=== PATIENT | female | born 1930 | race Caucasian/White ===

== ENCOUNTER 2017-12-21 09:32 | Outpatient (CLI) | payer MEDICARE, OTHER ==
--- NOTE | 2017-12-21 11:16 | ULT ---
LEFT LOWER EXTREMITY VENOUS DUPLEX EXAM: Date: 12/21/17 HISTORY: Leg pain and swelling. Contusion to lower leg. FINDINGS: Some of these films were inadvertently labeled wrong. This is a LEFT leg exam, even though some of th e labeling shows right. Real-time color Doppler of left lower extremity was performed from groin to calf. This includes evalu ation of the common femoral, superficial and profunda femoral, saphenous, popliteal, and posterior ti bial vein. This shows patent deep venous system. There is normal compressibility and augmentation. Th ere is no evidence of deep venous thrombosis. IMPRESSION: No evidence of deep venous thrombosis of the left lower extremity. POS: [facility]
== END 2017-12-21 09:33 | disposition home or self-care (01) ==
LOC: ULT 09:32
PROVIDERS: ATTEND Family Medicine
DX: S80.12XA Contusion of left lower leg, initial encounter (principal); M79.605 Pain in left leg

== ENCOUNTER 2018-07-31 15:58 | Emergency (ER) | payer MEDICARE, OTHER ==
--- NOTE | 2018-07-31 16:50 | ULT ---
US Venous Doppler Lt Unilat HISTORY: Left lower extremity pain and edema. FINDINGS: Real-time color Doppler evaluation of the left lower extremity was performed from the groin to calf. This includes evaluation of the common femoral, superficial and profunda femoral, saphenous, popliteal and posterior tibial veins. This reveals a patent deep venous system. There is normal compressibility and augmentation. There is no evidence of DVT. IMPRESSION: No evidence of DVT of the left lower extremity.
== END 2018-07-31 17:20 | disposition home or self-care (01) ==
LOC: ERS 15:58
DX: M79.89 Other specified soft tissue disorders (principal); M10.9 Gout, unspecified; E78.5 Hyperlipidemia, unspecified; I10 Essential (primary) hypertension; I25.2 Old myocardial infarction; J44.9 Chronic obstructive pulmonary disease, unspecified; Z79.899 Other long term (current) drug therapy; Z79.82 Long term (current) use of aspirin; Z79.51 Long term (current) use of inhaled steroids

== ENCOUNTER 2019-05-27 15:50 | Observation (INO) | payer MEDICARE, OTHER ==
[2019-05-27] MEDS ORDERED: Nitroglycerin 0.4 MG TAB (25 Tab Bottle) PO PRN (16:35)
[2019-05-27] MEDS ORDERED: Aspirin 325 mg Enteric Coated Tablet PO SCH (17:00)
[2019-05-27 17:09] LABS: Troponin I Less than 0.010 ng/mL (< 0.028)
[2019-05-27 19:01] VITALS: BMI 30.7
--- NOTE | 2019-05-27 19:05 | HP ---
PRIMARY CARE PROVIDER: Dr. Judy Chaparro. CHIEF COMPLAINT: Chest pain. HISTORY OF PRESENT ILLNESS: Ms. Hammonds is a pleasant 88-year-old lady, who was seen at [facility] on May 27, 2019. She is followed by merchandise pickup/receiving associate, Dr. Ragland. Her auto porter is Dr. Chavez. The patient reports that she started having left-sided chest pain since noon today. She describes it as a pressure-like sensation, nonradiating, 6/10 at its worst, not accompanied by nausea, shortness of breath or lightheadedness. She reports that her last stress test was greater than 2 years ago. She cannot recall any aggravating factors for the chest pain, but the pain resolved after she received nitrates in the emergency room at [place]. She reports that it lasted a little over 2 hours. She did not have any recurrence of the pain. REVIEW OF SYSTEMS: All systems were reviewed and found to be negative except for the pertinent positives mentioned above. PAST MEDICAL HISTORY: Gout, dyslipidemia, hypertension, coronary artery disease, chronic obstructive pulmonary disease, chronic kidney disease stage 3. PAST SURGICAL HISTORY: Coronary artery bypass graft surgery. SOCIAL HISTORY: The patient denies tobacco use, alcohol use, or recreational drug use. CODE STATUS: I discussed her code status. She is full code. FAMILY HISTORY: Significant for multiple members with coronary artery disease. ALLERGIES: SULFA. CURRENT MEDICATIONS: Aspirin 325 mg daily, Crestor 10 mg daily, atenolol 50 mg daily, and losartan 25 mg daily. PHYSICAL EXAMINATION: GENERAL: On examination, Ms. Hammonds is awake and alert, not in acute distress. VITAL SIGNS: Blood pressure is 129/89, pulse 66, respiratory rate 18, and oxygen saturation 100% on room air. She is afebrile. EYES: No scleral icterus, no conjunctival pallor. ENT: Moist mucosal membranes. No oropharyngeal erythema or exudates. NECK: Supple, nontender, trachea is midline. RESPIRATORY: Accessory muscles of breathing are not active. Chest wall movements are symmetric bilaterally. Lungs are clear to auscultation without wheeze, rhonchi, or crepitations. CARDIOVASCULAR: S1 and S2 are heard, regular. Peripheral pulses palpable. ABDOMEN: Soft, nontender, bowel sounds are heard. NEUROLOGIC: Cranial nerves 2 through 12 are intact. MUSCULOSKELETAL: Power is 5/5 in all 4 extremities. SKIN: No rashes. LYMPHATIC: No cervical lymphadenopathy. PSYCHIATRIC: Normal mood, normal affect, patient is oriented to person, place, and time. LABORATORY DATA: Ms. Hammonds's labs and investigations were reviewed. I reviewed her electrocardiogram, which shows normal sinus rhythm with occasional premature ventricular complexes, no ST changes to suggest an acute coronary syndrome. I also reviewed her chest x-ray, which does not show any pulmonary infiltrates. She has an unremarkable CBC, normal electrolytes, elevated blood urea nitrogen of 23, elevated creatinine of 1.37, creatinine was 1.44 on March 29, 2019, and unremarkable LFTs. ASSESSMENT AND PLAN: 1. Chest pain: Ms. Hammonds is presenting with chest pain. Given her significant cardiac history, she will be admitted to the hospital for further management. She will be monitored on telemetry. I will obtain stress test. Further management depending on outcome of the test. 2. Chronic kidney disease stage 3: Stable. 3. Dyslipidemia: Continue statin. 4. Hypertension: Resume home medications, monitor vital signs and titrate antihypertensives as needed. LEVEL OF RISK: High. LEVEL OF COMPLEXITY: High. Many thanks for allowing me to participate in your patient's care. Please feel free to contact me with any questions or concerns. Job ID: [id number]
[2019-05-27] MEDS: Rosuvastatin 10 MG TAB PO SCH (19:30)
[2019-05-27 20:10] LABS: Troponin I Less than 0.010 ng/mL (< 0.028)
[2019-05-28] MEDS: Atenolol 50 MG TAB PO SCH (07:59)
[2019-05-28] MEDS: Enoxaparin Sodium 40 MG/0.4 ML SYRINGE SC SCH (08:00)
[2019-05-28] MEDS: Losartan 25 MG TAB PO SCH (08:11)
[2019-05-28] MEDS: Aspirin 325 mg Enteric Coated Tablet PO SCH (08:11)
--- NOTE | 2019-05-28 13:19 | PDOC.HOSPP ---
- Subjective Encounter Date: 05/28/19 Encounter Time: 13:18 Subjective: Pt seen for followup re: chest pain. Denies any chest pain today. Slept well. - Objective Vital Signs & Weight: Vital Signs (12 hours) Temp Pulse Resp BP BP Pulse Ox 05/28/19 11:53 97.2 F L 72 20 142/83 H 97 05/28/19 07:59 63 05/28/19 07:25 97.6 F 63 16 139/65 95 05/28/19 03:45 98.2 F 74 18 106/55 L 94 L Weight Weight 177 lb 14.4 oz I&O: 05/27/19 05/28/19 05/29/19 06:59 06:59 06:59 Intake Total 240 Output Total 800 Balance -560 Additional Labs: Labs and MARs reviewed by sc Hospitalist ROS - Review of Systems Respiratory: denies: cough, shortness of breath, SOB with excertion, pleuritic pain, wheezing Cardiovascular: denies: chest pain, palpitations, orthopnea, paroxysmal noc. dyspnea, edema, light headedness Gastrointestinal: denies: nausea, vomiting, abdominal pain, diarrhea, constipation, melena, hematochezia Genitourinary: denies: dysuria, frequency, incontinence, hematuria, retention Musculoskeletal: denies: neck pain, shoulder pain, arm pain, back pain, hand pain, leg pain, foot pain - Medication Medications: Active Medications Generic Name Dose Route Start Last Admin Trade Name Freq PRN Reason Stop Dose Admin Aspirin 325 mg 05/28/19 09:00 05/28/19 08:11 Ecotrin PO 325 mg DAILY [facility] Administration Atenolol 50 mg 05/28/19 09:00 05/28/19 07:59 Tenormin PO Not Given DAILY [facility] Enoxaparin Sodium 40 mg 05/28/19 09:00 05/28/19 08:00 Lovenox SC Not Given 0900 [facility] Losartan Potassium 25 mg 05/28/19 09:00 05/28/19 08:11 Cozaar PO 25 mg DAILY [facility] Administration Rosuvastatin Calcium 10 mg 05/27/19 21:00 05/27/19 19:30 Crestor PO 10 mg Q48H [facility] Administration - Exam General - other findings: Obese Eye: anicteric sclera ENT: normocephalic atraumatic, moist mucosa Neck: supple, symmetric, no thyromegaly, no lymphadenopathy Heart: RRR, no gallops, no rubs, normal peripheral pulses Respiratory: CTAB, no wheezes, no rales, no ronchi Gastrointestinal: soft, non-tender, non-distended, normal bowel sounds Extremities: no cyanosis Skin: no rashes Musculoskeletal: normal strength Psychiatric: normal affect, normal behavior, A&O x 3 Hosp A/P (1) Chest pain Code(s): R07.9 - CHEST PAIN, UNSPECIFIED Status: Acute (2) HTN (hypertension) Code(s): I10 - ESSENTIAL (PRIMARY) HYPERTENSION Status: Chronic (3) Dyslipidemia Code(s): E78.5 - HYPERLIPIDEMIA, UNSPECIFIED Status: Chronic (4) Gout Code(s): M10.9 - GOUT, UNSPECIFIED Status: Chronic (5) Chronic kidney disease, stage 3 Code(s): N18.3 - CHRONIC KIDNEY DISEASE, STAGE 3 (MODERATE) Status: Chronic - Plan Pt awaiting stress test. CTA chest to r/o PE (elevated d-dimer). CKD stable. Gentle IV hydration. Monitor vital signs, titrate antihypertensives as needed.
[2019-05-28] MEDS ORDERED: Regadenoson 0.4 MG/5 ML SYRINGE ONE (15:21)
[2019-05-28] MEDS ORDERED: Iopamidol-370 76% 500 ML 1 ML ONE (15:51)
--- NOTE | 2019-05-28 15:54 | CT ---
CT ANGIOGRAM THORAX WITH IV CONTRAST AND 3-D RECONSTRUCTIONS CLINICAL INDICATION: Chest pain and elevated d-dimer. Patient states left-sided chest pain which started yesterday. COMPARISON: None FINDINGS: Pulmonary arteries: No filling defects are seen in the pulmonary arteries to suggest a pulmonary embo ajay. Aorta: Vascular calcifications and mild atherosclerotic plaque is seen in the thoracic aorta. The tho racic aorta is normal in caliber without evidence of an aortic dissection. Lungs: Calcified granuloma is seen in the right upper lobe. Mild atelectasis is present at each lung base. No consolidation or pleural effusion is identified Mediastinum: There is no evidence of lymphadenopathy. Postsurgical changes related to CABG are noted. Vascular calcifications are seen in the coronary arteries. Thyroid gland: Incompletely imaged but where visualized has a grossly normal CT appearance. Osseous structures: Degenerative changes are seen in the spine Chest wall: No abnormality visualized. Upper abdomen: Gallbladder calculi are partially imaged. There is a small hiatal hernia noted. IMPRESSION: 1. No CT evidence of a pulmonary embolus. 2. Evidence of CABG. 3. Small hiatal hernia. 4. Cholelithiasis.
[2019-05-28] MEDS: Sodium Chloride 0.9% 1,000 ML IV SCH (16:30)
[2019-05-28 23:18] LABS: #Basophils 0.1 thou/uL (0.0-0.2); #Eosinphils 0.2 thou/uL (0.0-0.7); #Lymphocytes 2.7 thou/uL (1.20-3.40); #Monocytes 1.3 thou/uL (0.11-0.59); #Neutrophils 5.2 thou/uL (1.40-6.50); %Basophils 0.7 % (0.0-1.0); %Eosinophils 2.1 % (0.0-10.0); %Lymphocytes 28.4 % (21.0-51.0); %Monocytes 13.7 % (0.0-10.0); %Neutrophils 55.2 % (42.0-75.0); Hemoglobin 14.6 g/dL (12.0-16.0); Mean Corpuscular HGB CONC 33.7 g/dL (32.0-36.0); Mean Platelet Volume 8.6 fL (7.4-10.4); Platelet Count 211 thou/uL (130-400); White Blood Cell (WBC) Count 9.5 thou/uL (4.8-10.8)
[2019-05-28 23:43] LABS: Anion Gap 15 mmol/L (10-20); BUN (Urea Nitrogen) 22 mg/dL (9.8-20.1); Calc. Creatinine Clearance 45 mL/min (70-130); Calcium 9.5 mg/dL (7.8-10.44); Carbon Dioxide 24 mmol/L (23-31); Chloride 104 mmol/L (98-107); Estimated GFR-MDRD 45; Glucose 112 mg/dL (83-110); Magnesium 2.1 mg/dL (1.6-2.6); Sodium 139 mmol/L (136-145)
[2019-05-29 05:46] LABS: #Basophils 0.1 thou/uL (0.0-0.2); #Eosinphils 0.3 thou/uL (0.0-0.7); #Lymphocytes 2.1 thou/uL (1.20-3.40); #Monocytes 0.9 thou/uL (0.11-0.59); #Neutrophils 4.2 thou/uL (1.40-6.50); %Basophils 1.1 % (0.0-1.0); %Eosinophils 3.9 % (0.0-10.0); %Monocytes 11.3 % (0.0-10.0); %Neutrophils 55.8 % (42.0-75.0); Mean Corpuscular Hemoglobin 34.2 pg (27.0-31.0); Mean Platelet Volume 8.6 fL (7.4-10.4); Platelet Count 188 thou/uL (130-400); White Blood Cell (WBC) Count 7.6 thou/uL (4.8-10.8)
[2019-05-29 05:47] LABS: Anion Gap 12 mmol/L (10-20); BUN (Urea Nitrogen) 19 mg/dL (9.8-20.1); Calc. Creatinine Clearance 49 mL/min (70-130); Calcium 8.8 mg/dL (7.8-10.44); Carbon Dioxide 24 mmol/L (23-31); Chloride 106 mmol/L (98-107); Estimated GFR-MDRD 50; Glucose 122 mg/dL (83-110); Sodium 138 mmol/L (136-145)
--- NOTE | 2019-05-29 07:26 | PDOC.HOSPP ---
- Subjective Encounter Date: 05/29/19 Encounter Time: 10:00 Subjective: No chest pain this AM. No symptoms but had some arrhythmia on monitor overnight. - Objective Vital Signs & Weight: Vital Signs (12 hours) Temp Pulse Resp BP BP Pulse Ox 05/29/19 04:00 98.6 F 81 16 114/53 L 93 L 05/28/19 23:53 98.6 F 88 16 130/67 94 L 05/28/19 19:50 98.5 F 74 18 154/98 H 96 Weight Weight 177 lb 14.4 oz I&O: 05/28/19 05/29/19 05/30/19 06:59 06:59 06:59 Intake Total 240 1550 Output Total 800 1700 Balance -560 -150 Result Diagrams: 05/29/19 04:31 05/29/19 04:31 Hospitalist ROS - Review of Systems Constitutional: denies: fever, chills Respiratory: denies: cough, shortness of breath Cardiovascular: denies: chest pain, palpitations Gastrointestinal: denies: nausea, vomiting - Medication Medications: Active Medications Generic Name Dose Route Start Last Admin Trade Name Freq PRN Reason Stop Dose Admin Aspirin 325 mg 05/28/19 09:00 05/28/19 08:11 Ecotrin PO 325 mg DAILY [facility] Administration Atenolol 50 mg 05/28/19 09:00 05/28/19 07:59 Tenormin PO Not Given DAILY [facility] Enoxaparin Sodium 40 mg 05/28/19 09:00 05/28/19 08:00 Lovenox SC Not Given 0900 [facility] Sodium Chloride 1,000 mls @ 70 mls/hr 05/28/19 13:30 05/28/19 16:30 Normal Saline 0.9% IV 1,000 mls .[id number] [facility] Administration Losartan Potassium 25 mg 05/28/19 09:00 05/28/19 08:11 Cozaar PO 25 mg DAILY [facility] Administration Rosuvastatin Calcium 10 mg 05/27/19 21:00 05/27/19 19:30 Crestor PO 10 mg Q48H [facility] Administration - Exam General Appearance: NAD, awake alert ENT: moist mucosa Heart: RRR, no murmur, no gallops, no rubs Respiratory: CTAB, no wheezes, no rales, no ronchi Gastrointestinal: soft, non-tender, non-distended, normal bowel sounds Psychiatric: normal affect, normal behavior, A&O x 3 Hosp A/P (1) Chest pain Code(s): R07.9 - CHEST PAIN, UNSPECIFIED Status: Acute (2) HTN (hypertension) Code(s): I10 - ESSENTIAL (PRIMARY) HYPERTENSION Status: Chronic (3) Dyslipidemia Code(s): E78.5 - HYPERLIPIDEMIA, UNSPECIFIED Status: Chronic (4) Gout Code(s): M10.9 - GOUT, UNSPECIFIED Status: Chronic (5) Chronic kidney disease, stage 3 Code(s): N18.3 - CHRONIC KIDNEY DISEASE, STAGE 3 (MODERATE) Status: Chronic (6) Paroxysmal atrial fibrillation Code(s): I48.0 - PAROXYSMAL ATRIAL FIBRILLATION Status: Acute Plan: no hx, seen on tele monitor overnight - Plan Stress test with a small reversible defect, afib run on monitor overnight, will consult Dr. Bentley, keep NPO for now
--- NOTE | 2019-05-29 09:26 | NM ---
EXAM: CARDIAC SPECT HISTORY: Chest pain, coronary artery disease, status post CABG, COPD, hypertension, dyslipidemia TECHNIQUE: A myocardial perfusion scan was performed using the single isotope 2 day protocol with jonas hnetium 99m sestamibi. [32 mCi] was injected intravenously for the rest exam followed by 30 mCi for the stress study. Pharmacologic stress with Lexiscan was monitored and interpreted by Gio Mercado nurse practitioner FINDINGS: There is a small area of mildly decreased tracer localization in the proximal lateral wall on the stress images with complete reversibility at rest. Gated SPECT LVEF: 82% Wall motion exam: Normal IMPRESSION: Small area of probable mild proximal lateral wall ischemia with complete reversibility.
[2019-05-29] MEDS: Enoxaparin Sodium 40 MG/0.4 ML SYRINGE SC SCH (09:44)
[2019-05-29] MEDS: Sodium Chloride 0.9% 1,000 ML IV SCH (09:44)
[2019-05-29] MEDS: Aspirin 325 mg Enteric Coated Tablet PO SCH (10:46)
[2019-05-29] MEDS: Losartan 25 MG TAB PO SCH (10:47)
[2019-05-29] MEDS: Atenolol 50 MG TAB PO SCH (10:47)
[2019-05-29] MEDS ORDERED: Communication Order-Pharmacy FS SCH ×2 (12:00→15:30)
--- NOTE | 2019-05-29 12:38 | CON ---
DATE OF CONSULTATION: 05/29/2019 REASON FOR CONSULTATION: Chest pain, pressure, and abnormal stress test. PRIMARY FLUTE POLISHER: Dr. Jose Ragland. HISTORY OF PRESENT ILLNESS: Ms. Rosa Hammonds is a very pleasant 88-year-old woman. The patient had coronary artery bypass grafting in the early . The details will be listed below. The patient was doing well up until 2 days ago. She had the onset of pain and pressure in the left upper chest. It was relatively intense and very gradually resolved. She did not have any nitroglycerin. She gradually improved after being treated here, and is pain-free now. Stress test was abnormal and will be outlined below. The patient otherwise has been doing well. PAST MEDICAL HISTORY: The patient had a history of coronary artery bypass grafting, it was done 2-vessel. The patient had bypass x2, internal mammary to the LAD, saphenous vein graft to 1st diagonal. The patient also has a history of atrial fibrillation and underwent ablation in [place], she tells me. The patient later underwent cardiac catheterization, the internal mammary artery graft was occluded, but the saphenous vein graft was perfusing the diagonal branch and retrograde into the LAD. The patient was adequately vascularized. The patient as mentioned did have an ablation done in the early 1999, it is not known to me whether that was an atrial tachycardia or flutter ablation or fibrillation ablation, I suspect it may have been flutter or SVT. The patient otherwise had been doing well up until recently. MEDICATIONS: Please see nurse's note. She was on: 1. Losartan. 2. Hydrochlorothiazide. 3. Rosuvastatin. 4. Atenolol. 5. Vascepa. ALLERGIES: SULFA. REVIEW OF SYSTEMS: CONSTITUTIONAL: No significant weight gain or loss. VISION: No changes. HEARING: No changes. PULMONARY: No cough or wheezing. GASTROINTESTINAL: No nausea, vomiting, or diarrhea. SKIN: No rashes. NEUROLOGIC: No unilateral weakness or numbness. PSYCHIATRIC: No unusual depression or anxiety. SOCIAL HISTORY: No alcohol or tobacco. PHYSICAL EXAMINATION: GENERAL: This is a very pleasant 88-year-old woman, in no distress. VITAL SIGNS: Blood pressure 133/58, pulse 63 and regular. EYES: Sclerae nonicteric. MOUTH: Mucous membranes moist. NECK: Supple. No lymphadenopathy. LUNGS: Clear. CARDIAC: No murmur, rub, or gallop. She does have frequent premature contractions. ABDOMEN: Soft and nontender. No hepatosplenomegaly. EXTREMITIES: Warm and dry. No clubbing, cyanosis, or edema. She has good femoral pulses bilaterally. SKIN: Warm and dry. PSYCHIATRIC: Mood and affect normal. NEUROLOGIC: Grossly normal. Moves all extremities. PERTINENT LABORATORY DATA: Creatinine is 1.05, it was 1.15 yesterday. Glucose is 122. Troponin levels were negative. EKG, sinus rhythm with intermittent paroxysmal atrial fibrillation, some mild sinus pauses, some PVCs and PACs. Stress test revealed normal scan at rest, but she has inferior lateral ischemia with stress. ASSESSMENT: 1. Previous coronary artery bypass grafting, internal mammary to left anterior descending and saphenous vein graft to the diagonal. 2. Subsequent catheterization showing the internal mammary graft was occluded, but the vein graft was perfusing her diagonal and left anterior descending adequately. 3. Ischemia now in a different distribution on nuclear medicine imaging. 4. Paroxysmal atrial fibrillation. 5. Hypercholesterolemia, mixed, being treated. PLAN: We will discuss with Dr. Ragland, likely will need cardiac catheterization. Discussed risks of stroke, heart attack, iodine allergy, loss of blood supply to leg or kidney, stent thrombosis, stent restenosis. She understands and wished to proceed. Job ID: [id number]
[2019-05-29] MEDS ORDERED: Enoxaparin Sodium 30 MG/0.3 ML SYRINGE ONE (17:22)
[2019-05-29] MEDS ORDERED: Enoxaparin Sodium 40 MG/0.4 ML SYRINGE SC SCH (18:00)
[2019-05-29] MEDS: Rosuvastatin 10 MG TAB PO SCH (20:40)
[2019-05-30 05:06] LABS: #Basophils 0.1 thou/uL (0.0-0.2); #Eosinphils 0.3 thou/uL (0.0-0.7); #Lymphocytes 2.1 thou/uL (1.20-3.40); #Monocytes 0.7 thou/uL (0.11-0.59); #Neutrophils 2.5 thou/uL (1.40-6.50); %Eosinophils 5.8 % (0.0-10.0); %Lymphocytes 37.7 % (21.0-51.0); %Neutrophils 43.5 % (42.0-75.0); Hemoglobin 12.9 g/dL (12.0-16.0); Mean Corpuscular HGB CONC 35.2 g/dL (32.0-36.0); Mean Corpuscular Hemoglobin 34.7 pg (27.0-31.0); Mean Corpuscular Volume 98.7 fL (78.0-98.0); Mean Platelet Volume 8.4 fL (7.4-10.4); Platelet Count 177 thou/uL (130-400); RBC Distribution Width 11.7 % (11.5-14.5); Red Blood Cell (RBC) Count 3.73 mill/uL (4.20-5.40); White Blood Cell (WBC) Count 5.6 thou/uL (4.8-10.8)
[2019-05-30 05:23] LABS: Anion Gap 12 mmol/L (10-20); BUN (Urea Nitrogen) 22 mg/dL (9.8-20.1); Calc. Creatinine Clearance 46 mL/min (70-130); Calcium 8.6 mg/dL (7.8-10.44); Carbon Dioxide 24 mmol/L (23-31); Chloride 106 mmol/L (98-107); Estimated GFR-MDRD 47; Glucose 127 mg/dL (83-110); Potassium 4.2 mmol/L (3.5-5.1); Sodium 138 mmol/L (136-145)
[2019-05-30] MEDS: Aspirin 325 mg Enteric Coated Tablet PO SCH (06:07)
[2019-05-30] MEDS: Losartan 25 MG TAB PO SCH (06:07)
[2019-05-30] MEDS: Atenolol 50 MG TAB PO SCH (06:08)
[2019-05-30] MEDS: Sodium Chloride 0.9% 1,000 ML IV SCH ×2 (06:09→16:07)
--- NOTE | 2019-05-30 07:50 | PDOC.HOSPP ---
- Subjective Encounter Date: 05/30/19 Encounter Time: 11:20 Subjective: Patient back from catheterization, reportedly ok without need for stent. No chest pain. No SOB. - Objective Vital Signs & Weight: Vital Signs (12 hours) Temp Pulse Resp BP Pulse Ox 05/30/19 06:08 74 05/30/19 03:15 97.8 F 74 18 125/60 94 L 05/29/19 23:10 97.7 F 67 14 125/60 94 L Weight Weight 178 lb I&O: 05/29/19 05/30/19 05/31/19 06:59 06:59 06:59 Intake Total 1550 1240 Output Total 1700 2050 Balance -150 -810 Result Diagrams: 05/30/19 04:43 05/30/19 04:43 Hospitalist ROS - Review of Systems Constitutional: denies: fever, chills Respiratory: denies: cough, shortness of breath Cardiovascular: denies: chest pain, palpitations Gastrointestinal: denies: nausea, vomiting, abdominal pain - Medication Medications: Active Medications Generic Name Dose Route Start Last Admin Trade Name Freq PRN Reason Stop Dose Admin Aspirin 325 mg 05/28/19 09:00 05/30/19 06:07 Ecotrin PO 325 mg DAILY [facility] Administration Atenolol 50 mg 05/28/19 09:00 05/30/19 06:08 Tenormin PO 50 mg DAILY [facility] Administration Sodium Chloride 1,000 mls @ 100 mls/hr 05/30/19 06:00 05/30/19 06:09 Normal Saline 0.9% IV 1,000 mls .Q10H [facility] Administration Losartan Potassium 25 mg 05/28/19 09:00 05/30/19 06:07 Cozaar PO 25 mg DAILY [facility] Administration Ranolazine 500 mg 05/29/19 21:00 05/30/19 06:09 Ranexa PO 500 mg BID [facility] Administration Rosuvastatin Calcium 10 mg 05/27/19 21:00 05/29/19 20:40 Crestor PO 10 mg Q48H [facility] Administration Sodium Chloride 10 ml 05/29/19 21:00 05/30/19 06:09 Flush - Normal Saline IVF 10 ml Q12HR [facility] Administration - Exam General Appearance: NAD, awake alert ENT: moist mucosa Heart: RRR, no murmur, no gallops, no rubs Respiratory: CTAB, no wheezes, no rales, no ronchi Gastrointestinal: soft, non-tender, non-distended Psychiatric: normal affect, normal behavior, A&O x 3 Hosp A/P (1) Chest pain Code(s): R07.9 - CHEST PAIN, UNSPECIFIED Status: Resolved (2) HTN (hypertension) Code(s): I10 - ESSENTIAL (PRIMARY) HYPERTENSION Status: Chronic (3) Dyslipidemia Code(s): E78.5 - HYPERLIPIDEMIA, UNSPECIFIED Status: Chronic (4) Gout Code(s): M10.9 - GOUT, UNSPECIFIED Status: Chronic (5) Chronic kidney disease, stage 3 Code(s): N18.3 - CHRONIC KIDNEY DISEASE, STAGE 3 (MODERATE) Status: Chronic (6) Paroxysmal atrial fibrillation Code(s): I48.0 - PAROXYSMAL ATRIAL FIBRILLATION Status: Acute - Plan Stress test with a small reversible defect, afib run on monitor overnight 05/28- 03/07. Cath by Dr. Ragland this AM. D/c when ok with cardiology.
[2019-05-30] MEDS ORDERED: Hydrochlorothiazide 25 MG TAB PO SCH (09:00)
[2019-05-30] MEDS ORDERED: Iopamidol 370 76% 100 ML VIAL ONE (09:38)
[2019-05-30] MEDS ORDERED: Lidocaine 1% (PF) 30 ML VIAL ONE (09:53)
[2019-05-30] MEDS ORDERED: Heparin (Artline) 1,000 ML ONE (09:53)
[2019-05-30] MEDS ORDERED: Midazolam HCl 2 mg/2 ml Vial ONE (10:22)
[2019-05-30] MEDS ORDERED: Acetaminophen/Codeine 30-300mg Tablet PO PRN ×2 (10:44)
[2019-05-30] MEDS ORDERED: Nitroglycerin 0.4 MG TAB (25 Tab Bottle) SL PRN (10:44)
[2019-05-30] MEDS ORDERED: Sodium Chloride 0.9% 200 ML IV PRN (10:44)
[2019-05-30 16:43] VITALS: BP 143/67; TEMP 98.2
--- NOTE | 2019-05-31 01:59 | DIS ---
DATE OF ADMISSION: 05/27/2019 DATE OF DISCHARGE: 05/30/2019 PRIMARY CARE PHYSICIAN: Dr. Clark. REASON FOR ADMISSION: Chest pain. DIAGNOSES AT DISCHARGE: 1. Chest pain, resolved. 2. Hypertension. 3. Hyperlipidemia. 4. Gout. 5. Chronic kidney disease, stage III. 6. Multiple PACs on the monitor determined not to be atrial fibrillation. PROCEDURES: 1. Nuclear medicine stress test showing a small area of probable mild proximal lateral wall ischemia with complete reversibility. 2. CTA of the chest and thorax showing no CT evidence of pulmonary embolism, but there is evidence of previous CABG and cholelithiasis and a hiatal hernia. 3. Cardiac catheterization showing a proximal LAD lesion of 100% with a patent vein graft originating in left aorta and attaching to the first diagonal filling the LAD in retrograde fashion, this is remains patent. No other significant disease. CONSULTATIONS: Dr. Bentley and Dr. Ragland for Cardiology. SUMMARY OF HOSPITAL COURSE: This is an 88-year-old white female, patient of Dr. Ragland, who came in with chest pain lasting a little over 2 hours with a history of previous CABG. She had an occasional PVCs, but no ST changes on her EKG. Had negative enzymes. She was observed in the hospital. Stress test was done with the above results. Cardiology was consulted. Dr. Bentley saw the patient for Dr. Ragland and determined she would likely need a cardiac catheterization. Dr. Ragland did take her back the next day for cardiac catheterization showed a patent bypass graft with no other occlusions. The patient did have a run of some premature atrial beat one night when she was in the hospital, this is asymptomatic. Dr. Ragland did look at her strip before discharge in turn that she was not having any atrial fibrillation and that she did not need any anticoagulants for that and cleared her for discharge. DISCHARGE MANAGEMENT: Discharged home. FOLLOWUP: Follow up with Dr. Ragland in one month and Dr. Clark in 3 days. ACTIVITY: As tolerated. DIET: Healthy heart, low-sodium diet. MEDICATIONS: 1. Aspirin 325 mg daily, 30 tablets dispensed. 2. Ranexa 500 mg twice a day, 60 capsules dispensed. 3. Atenolol 12.5 mg daily. 4. Hydrochlorothiazide 12.5 mg daily. 5. Losartan 25 mg daily. 6. Rosuvastatin 10 mg at night. Job ID: [id number]
--- NOTE | 2019-06-07 16:38 | EKG ---
Test Reason : Blood Pressure : / mmHG Vent. Rate : 058 BPM Atrial Rate : 058 BPM P-R Int : 218 ms QRS Dur : 086 ms QT Int : 426 ms P-R-T Axes : 102 -21 072 degrees QTc Int : 418 ms Sinus bradycardia with marked sinus arrhythmia with 1st degree A-V block Inferior infarct , age undetermined Cannot rule out Anterior infarct , age undetermined Abnormal ECG Confirmed by YORDAN WITT DO ([id number]), general expeditor RAYSHAWN GRANADOS ([id number]) on 06/07/2019 4:37:39 PM Referred By: Confirmed By:YORDAN WITT DO
== END 2019-05-30 16:28 | disposition home or self-care (01) ==
LOC: ERS 15:50 → 2SW 18:18
PROVIDERS: ADMIT Internal Medicine; ATTEND Emergency Medicine
PROC: 4A023N7 Measurement of Cardiac Sampling and Pressure, Left Heart, Percutaneous Approach (ICD-10-PCS; principal; 2019-05-30)
PROC: B2111ZZ Fluoroscopy of Multiple Coronary Arteries using Low Osmolar Contrast (ICD-10-PCS; 2019-05-30)
PROC: B2121ZZ Fluoroscopy of Single Coronary Artery Bypass Graft using Low Osmolar Contrast (ICD-10-PCS; 2019-05-30)
DX: I25.10 Atherosclerotic heart disease of native coronary artery without angina pectoris (principal); I25.810 Atherosclerosis of coronary artery bypass graft(s) without angina pectoris; I25.82 Chronic total occlusion of coronary artery; R07.89 Other chest pain; M10.9 Gout, unspecified; I25.2 Old myocardial infarction; J44.9 Chronic obstructive pulmonary disease, unspecified; I12.9 Hypertensive chronic kidney disease with stage 1 through stage 4 chronic kidney disease, or unspecified chronic kidney disease; N18.3 Chronic kidney disease, stage 3 (moderate); K44.9 Diaphragmatic hernia without obstruction or gangrene; K80.20 Calculus of gallbladder without cholecystitis without obstruction; I48.0 Paroxysmal atrial fibrillation; E78.2 Mixed hyperlipidemia; Z79.899 Other long term (current) drug therapy; Z88.2 Allergy status to sulfonamides; Z95.1 Presence of aortocoronary bypass graft
CPT/HCPCS: 71275; 78452; 80048 ×3; 83735; 84484; 85025 ×3; 85379; 93005 ×2; 93017; 93458; 94760 ×2; 96360; 96361; 96372; 99285; A9500; C1769; G0378 ×5; 36415; 93010; 99152; 99153; J1644; J1650; J2001; J2250; J2785; Q9967